=== PATIENT | male | born 1980 | race Caucasian/White ===

== ENCOUNTER → 2025-02-17 | Outpatient (CLI) | payer BC ==
--- NOTE | 2025-02-17 21:11 | NM ---
EXAMINATION TYPE: NM hepatobiliary w EF DATE OF EXAM: 02/17/2025 COMPARISON: NONE CLINICAL INDICATION: Male, 44 years old with history of R10.11 RUQ PAIN; TECHNIQUE: After the intravenous administration of 4..8 mCi Tc 99m Mebrofenin hepatobiliary scintigra phy is performed. Immediate images post injection. FINDINGS: There is satisfactory initial accumulation of tracer by the liver. The gallbladder is visualized wit hin 8 minutes. The small bowel activity is noted within 22 minutes. At one hour 8 ounces of oral en sure plus is given to mimic CCK and gallbladder ejection fraction is calculated at 77 %, in the felix l range. IMPRESSION: No scintigraphic evidence for acute/chronic cholecystitis or biliary dyskinesia. [facility] Sadaf Gomez, , 02/17/2025 9:08 PM
== END | disposition home or self-care (01) ==
LOC: RADNMMAIN 12:54
PROVIDERS: ATTEND Family Medicine
DX: R10.11 Right upper quadrant pain (principal)
CPT/HCPCS: 78226; A9537